=== PATIENT | female | born 2005 | race Caucasian/White ===

== ENCOUNTER 2023-08-15 17:35 | Emergency (ER) | payer SELFPAY ==
[2023-08-15] MEDS ORDERED: ONDANSETRON 4 MG/2 ML VIAL ONE (18:11)
[2023-08-15] MEDS ORDERED: NA CHLORIDE 0.9% 1,000 ML ONE (18:11)
[2023-08-15] MEDS ORDERED: FAMOTIDINE 20 MG/2 ML VIAL IV ONE (18:11)
[2023-08-15 18:25] LABS: Calcium Oxalate Crystals- Ur Few /HPF (None Seen); Specific Gravity > 1.030 (1.005-1.030); Urine Bacteria None Seen /HPF (<20); Urine Bilirubin NEGATIVE (Negative); Urine Blood Negative (Negative); Urine Clarity Extremely Turbid (Clear); Urine Color Yellow (Yellow); Urine Culture Reflex Order NOT NEEDED; Urine Glucose NEGATIVE (Negative); Urine Ketones NEGATIVE (Negative); Urine Microscopic Reflex YN ORDER UMIC; Urine Mucus 4+ /HPF (None Seen); Urine Nitrite NEGATIVE (Negative); Urine Protein TRACE (Negative); Urine RBC <5 /HPF (None Seen); Urine Urobilinogen Normal (Normal); Urine WBC None Seen /HPF (<5); Urine Yeast (Budding) Trace /HPF (None Seen); Urine pH 5.5 (5.0-7.0)
[2023-08-15 18:28] LABS: Absolute Eosinophils 0.1 K/uL (0-0.5); Absolute Lymphocytes (CBC) 2.5 K/uL (0.7-4.9); Absolute Monocytes 0.7 K/uL (0.1-1.3); Absolute Neutrophil 6.1 K/uL (1.8-8.0); Basophils % 0.5 % (0-1.3); Eosinophils % 1.2 % (0-4.4); Hematocrit 37.5 % (36.0-45.0); Hemoglobin 12.3 g/dL (12.0-15.0); Lymphocytes % 26.6 % (15.3-44.8); MCH 28.7 pg (27.0-35.0); MCHC 32.9 g/dL (32.0-36.0); MCV 87.2 fL (80-100); MPV 9.2 fL (7.6-11.3); Monocytes % 7.3 % (3.3-12.3); Neutrophils % 64.4 % (41.7-73.7); Platelets 232 thou/uL (152-406); Red Cell Distribution Width 13.8 % (12.1-15.2)
[2023-08-15 18:50] LABS: ALT/SGPT 17 U/L (13-56); Albumin 3.9 g/dL (3.4-5.0); Albumin/Globulin Ratio 1.1 (1.1-1.8); Alkaline Phosphatase 53 U/L (45-117); Anion Gap 7.2 mEq/L (5.0-15.0); BUN Blood Urea Nitrogen 5 mg/dL (7-18); Bicarbonate 26 mEq/L (21-32); Bilirubin Total 0.5 mg/dL (0.2-1.0); Globulin 3.4 g/dL (2.3-3.5); Glomerular Filtration Rate 113 ml/min (=/>90); Glucose Level 96 mg/dL (74-106); Lipase 17 U/L (13-75); Potassium 3.2 mEq/L (3.5-5.1); Protein, Total 7.3 g/dL (6.4-8.2); Sodium Level 138 mEq/L (136-145)
[2023-08-15 18:52] LABS: AST/SGOT < 10 U/L (15-37)
[2023-08-15 19:04] LABS: HCG, Quantitative 22469 mIU/mL (1-3)
--- NOTE | 2023-08-15 19:33 | EDPHYS ---
Physician Documentation [facility] Name: Kimberly Jacob Age: 18 yrs Sex: Female : 2005 Arrival Date: 08/15/2023 Time: 17:35 Bed 6 Private MD: ED Physician Fitz Chavira HPI: 08/14 18:10 This 18 yrs old Female presents to ER via Ambulatory with complaints of Abdominal Pain, cp Back Pain. 18:10 The patient presents with abdominal pain that is diffuse. cp 18:10 Onset: The symptoms/episode began/occurred gradually. The symptoms do not radiate. cp Associated signs and symptoms: Pertinent positives: nausea and vomiting, Pertinent negatives: vaginal bleeding. Severity of pain: in the emergency department the pain is unchanged despite home interventions. 18:10 The patient has been recently seen at the [facility] Emergency cp Department, this week, for similar complaints an ultrasound was performed, showing IUP. patient instructed to return to ED for repeat hcg level. 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 - Infectious Disease History:: Denies. - Social history:: Smoking status: Patient denies any tobacco usage or history of. ROS: 18:15 Abdomen/GI: Positive for abdominal pain, nausea, vomiting, Negative for diarrhea, cp constipation, 18:15 Eyes: Negative for injury, pain, redness, and discharge, cp 18:15 Constitutional: Negative for body aches, chills, fever, 18:15 : Negative for urinary symptoms, vaginal bleeding, 18:15 Neuro: Negative for altered mental status, dizziness, headache, weakness, 18:15 All other systems are negative, Exam: 18:20 Constitutional: The patient appears in no acute distress, alert, awake, comfortable, cp non-toxic, well developed, well nourished, 18:20 Head/Face: Normocephalic, atraumatic. cp 18:20 Eyes: Periorbital structures: appear normal, Conjunctiva: normal, no exudate, no injection, Sclera: no appreciated abnormality, Lids and lashes: appear normal, bilaterally, 18:20 ENT: External ear(s): are unremarkable, Nose: is normal, Mouth: Lips: moist, Oral mucosa: pink and intact, moist, Posterior pharynx: is normal, airway is patent, no erythema, no exudate, 18:20 Chest/axilla: Inspection: normal, 18:20 Cardiovascular: Rate: normal, Rhythm: regular, 18:20 Respiratory: the patient does not display signs of respiratory distress, Respirations: normal, no use of accessory muscles, no retractions, labored breathing, is not present, Breath sounds: are clear throughout, no decreased breath sounds, no stridor, no wheezing, 18:20 Abdomen/GI: Inspection: abdomen appears normal, Bowel sounds: active, all quadrants, Palpation: soft, in all quadrants, mild abdominal tenderness, in the right upper quadrant and left upper quadrant, rebound tenderness, is not appreciated, involuntary guarding, is not appreciated, 18:20 Back: CVA tenderness, is absent, Vital Signs: 17:39 BP 113 / 65; Pulse 84; Resp 16; Temp 98; Pulse Ox 98% ; ko1 19:16 BP 102 / 59; Pulse 60; Resp 18; Pulse Ox 100% ; jj7 19:51 BP 100 / 62; Pulse 60; Resp 16 S; Pulse Ox 100% on R/A; jw7 MDM: 17:46 Patient medically screened. [facility] 19:32 Data reviewed: vital signs, nurses notes, lab test result(s), and as a result, I will cp discharge patient. 19:32 Differential diagnosis: appendicitis, cholecystitis, Cholelithiasis, gastritis, cp non-specific abd pain, pancreatitis, Peptic Ulcer Disease, Perf. Duodenal Ulcer, Perf. Gastric Ulcer, Pyelonephritis, Ureterolithiasis, urinary tract infection. Response to treatment: the patient's symptoms have markedly improved after treatment, and as a result, I will discharge patient. Special discussion: Based on the patient's Hx, exam, and Dx evaluation, there is no indication for emergent surgery or inpatient Tx. It is understood by the patient/guardian that if the Sx's persist or worsen they need to return immediately for re-evaluation. 08/14 18:03 Order name: CBC with Diff; Complete Time: 19:12 cp 08/14 18:03 Order name: CMP; Complete Time: 19:12 cp 08/14 19:12 Interpretation: Normal except: K 3.2; CL 108; BUN 5; AST < 10. cp 08/14 18:03 Order name: Lipase; Complete Time: 19:12 cp 08/14 18:03 Order name: Urinalysis w/ reflexes; Complete Time: 19:12 cp 08/14 19:12 Interpretation: Normal except: [facility] Extremely Turbid; Urine SG > 1.030; UPROT TRACE; cp MUCUS 4+; BYST Trace. 08/14 18:03 Order name: Quantitative Hcg; Complete Time: 19:12 cp 08/14 19:13 Interpretation: Abnormal: HCGQ [id number]. cp 08/14 18:03 Order name: IV Saline Lock; Complete Time: 18:23 cp 08/14 18:03 Order name: Labs collected and sent; Complete Time: 18:23 cp 08/14 19:13 Order name: PO challenge; Complete Time: 19:16 cp Administered Medications: 18:23 Drug: NS 0.9% IV 1000 ml IV at 1 bolus Per protocol; 1000 mL bolus Route: IV; Rate: 1 me1 bolus; Site: right antecubital; 19:35 Follow up: Response: No adverse reaction; IV Status: Completed infusion; IV Intake: jw7 1000ml 18:23 Drug: Famotidine IVP 20 mg IVP once; dilute with 10 mL 0.9% NaCl; give over 2 minutes me1 Route: IVP; Site: right antecubital; 19:36 Follow up: Response: No adverse reaction; Marked relief of symptoms jw7 18:23 Drug: Ondansetron IVP 4 mg IVP once; over 2 minutes Route: IVP; Site: right antecubital;me1 19:35 Follow up: Response: No adverse reaction; Marked relief of symptoms jw7 19:51 Drug: Potassium PO Effervescent Tablet 50 mEq PO once; dissolve in 4 ounces of water or jw7 juice Route: PO; 19:51 Follow up: Response: No adverse reaction; Medication administered at discharge. jw7 Disposition Summary: 08/15/23 19:33 Discharge Ordered Notes: Location: Home cp Problem: new cp Symptoms: have improved cp Condition: Stable cp Diagnosis - Other specified related conditions, first trimester cp - Nausea with vomiting, unspecified cp - Abdominal pain, unspecified cp Followup: cp - With: Private Physician - When: 1 week - Reason: Recheck today's complaints Discharge Instructions: - Discharge Summary Sheet cp - Abdominal Pain During cp - Nausea and Vomiting, Adult cp - First Trimester of cp Forms: - Medication Reconciliation Form cp - Antibiotic Education cp - Prescription Opioid Use cp - Patient Portal Instructions cp - Leadership Thank You Letter cp Prescriptions: - Diclegis 10-10 mg Oral tablet, delayed release (enteric coated) - take 1 tablet ORAL route 3 times per day take 30 minutes prior to eating; 30 cp tablet; Refills: 0, Product Selection Permitted Addendum: 08/17/2023 07:47 Co-signature as Attending Physician, Fitz Chavira MD I agree with the assessment and c ramos plan of care. Signatures: Dispatcher [employer] Fitz Garsia MD MD cha Page, Corey, PA PA cp Fatoumata Jackson, RN RN jw7 Sarah Emerson RN RN ko1 Ilene Bryan RN RN me1 Corrections: (The following items were deleted from the chart) 08/15 19:11 08/14 18:10 The patient presents with abdominal pain in the lower abdomen, cp cp
--- NOTE | 2023-08-15 19:33 | ER ---
Nurse's Notes [facility] Name: Kimberly Jacob Age: 18 yrs Sex: Female : 2005 Arrival Date: 08/15/2023 Time: 17:35 Bed 6 Private MD: Diagnosis: Other specified related conditions, first trimester;Nausea with vomiting, unspecified;Abdominal pain, unspecified Presentation: 08/14 17:39 Chief complaint: Patient states: was here Saturday for same thing but it has returned. Is ko1 , couldn't find heartbeat on Saturday and was told to come back and get hormone levels drawn for possible misscarriage. Coronavirus screen: At this time, the client does not indicate any symptoms associated with coronavirus-19. Ebola Screen: No symptoms or risks identified at this time. Initial Sepsis Screen: Does the patient meet any 2 criteria? No. Patient's initial sepsis screen is negative. Does the patient have a suspected source of infection? No. Patient's initial sepsis screen is negative. Risk Assessment: Do you want to hurt yourself or someone else? Patient reports no desire to harm self or others. Onset of symptoms is unknown. 17:39 Method Of Arrival: Ambulatory ko1 17:39 Acuity: DANG 3 ko1 Triage Assessment: 17:43 General: Appears in no apparent distress. Behavior is calm, cooperative, appropriate ko1 for age. Pain: Complains of pain in back and abdomen. GI: Reports lower abdominal pain, upper abdominal pain. 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 - Infectious Disease History:: Denies. - Social history:: Smoking status: Patient denies any tobacco usage or history of. Screenin:26 [facility] ED Fall Risk Assessment (Adult) History of falling in the last 3 months, me1 including since admission No falls in past 3 months (0 pts) Confusion or Disorientation No (0 pts) Intoxicated or Sedated No (0 pts) Impaired Gait No (0 pts) Mobility Assist Device Used No (0 pt) Altered Elimination No (0 pt) Score/Fall Risk Level 0 - 2 = Low Risk Maintained a safe environment, Provided non-skid footwear, Hourly rounding (assess needs \T\ fall precautionary measures) done. Abuse screen: Denies threats or abuse. Nutritional screening: No deficits noted. Tuberculosis screening: No symptoms or risk factors identified. Assessment: 18:26 General: Appears comfortable, well groomed, well developed, well nourished, Behavior is me1 calm, cooperative, appropriate for age, Reports was here Saturday for same thing, abdominal pain and back pain, but it has returned. Is , couldn't find heartbeat on Saturday and was told to come back and get hormone levels drawn for possible miscarriage. Pain: Complains of pain in abdomen Pain radiates to back Pain currently is 4 out of 10 on a pain scale. Quality of pain is described as crampy, Pain began 1 day ago. Is intermittent. Neuro: Level of Consciousness is awake, alert, obeys commands, Oriented to person, place, time, situation, Appropriate for age. Respiratory: Airway is patent Respiratory effort is even, unlabored, Respiratory pattern is regular, symmetrical. GI: Abdomen is round non-distended, Bowel sounds present X 4 quads. Abd is soft and non tender X 4 quads. : Denies burning with urination, urinary frequency, vaginal bleeding. EENT: No signs and/or symptoms were reported regarding the EENT system. Derm: Skin is intact, is healthy with good turgor, Skin is pink, warm \T\ dry. Musculoskeletal: No signs and/or symptoms reported regarding the musculoskeletal system. 19:16 Reassessment: ASSUMED CARE OF PT. PT SITTING ON BED. NO DISTRESS NOTED. PT GIVEN JUICE jj7 FOR PO CHALLENGE. PT TOLERATING WELL. VS STABLE. FAMILY AT BEDSIDE. CALL HOGUE IN REACH. 19:51 Reassessment: Patient appears in no apparent distress at this time. No changes from jw7 previously documented assessment. Patient and/or family updated on plan of care and expected duration. Pain level reassessed. Patient is alert, oriented x 3, equal unlabored respirations, skin warm/dry/pink. Vital Signs: 17:39 BP 113 / 65; Pulse 84; Resp 16; Temp 98; Pulse Ox 98% ; ko1 19:16 BP 102 / 59; Pulse 60; Resp 18; Pulse Ox 100% ; jj7 19:51 BP 100 / 62; Pulse 60; Resp 16 S; Pulse Ox 100% on R/A; jw7 ED Course: 17:36 Patient arrived in ED. ts1 17:38 Fitz Panchal PA is PHCP. cp 17:38 Fitz Chavira MD is Attending Physician. cp 17:42 Triage completed. ko1 17:43 Arm band placed on right wrist. Patient placed in an exam room, on a stretcher, on ko1 pulse oximetry, Patient notified of wait time. 18:06 Ilene Bryan, RN is Primary Nurse. me1 18:23 CBC with Diff Sent. me1 18:23 CMP Sent. me1 18:23 Lipase Sent. me1 18:23 Urinalysis w/ reflexes Sent. me1 18:23 Quantitative Hcg Sent. me1 18:23 Inserted saline lock: 22 gauge in right antecubital area, using aseptic technique. me1 18:26 Patient has correct armband on for positive identification. Bed in low position. Call me1 light in reach. Side rails up X 1. Provided Education on: POC. Verbalized understanding. . Client placed on continuous cardiac and pulse oximetry monitoring. NIBP monitoring applied. Pulse ox on. NIBP on. 18:26 No provider procedures requiring assistance completed. me1 19:52 IV discontinued, intact, bleeding controlled, No redness/swelling at site. Pressure jw7 dressing applied. Administered Medications: 18:23 Drug: NS 0.9% IV 1000 ml IV at 1 bolus Per protocol; 1000 mL bolus Route: IV; Rate: 1 me1 bolus; Site: right antecubital; 19:35 Follow up: Response: No adverse reaction; IV Status: Completed infusion; IV Intake: jw7 1000ml 18:23 Drug: Famotidine IVP 20 mg IVP once; dilute with 10 mL 0.9% NaCl; give over 2 minutes me1 Route: IVP; Site: right antecubital; 19:36 Follow up: Response: No adverse reaction; Marked relief of symptoms jw7 18:23 Drug: Ondansetron IVP 4 mg IVP once; over 2 minutes Route: IVP; Site: right antecubital;me1 19:35 Follow up: Response: No adverse reaction; Marked relief of symptoms jw7 19:51 Drug: Potassium PO Effervescent Tablet 50 mEq PO once; dissolve in 4 ounces of water or jw7 juice Route: PO; 19:51 Follow up: Response: No adverse reaction; Medication administered at discharge. jw7 Medication: 18:26 VIS not applicable for this client. me1 Intake: 19:35 IV: 1000ml; Total: 1000ml. jw7 Outcome: 19:33 Discharge ordered by . cp 19:52 Discharged to home ambulatory, jw 19:52 Condition: stable 19:52 Discharge instructions given to patient, Instructed on discharge instructions, follow up and referral plans. medication usage, Demonstrated understanding of instructions, follow-up care, medications, Prescriptions given X 1, 19:52 Patient left the ED. jw7 Signatures: Fitz Panchal PA PA cp Waits, Jodi, RN RN jw7 Sarah Emerson RN RN ko1 Manda Ham RN RN jj7 Simpson, Tanya, PAS PAS ts1 Ilene Bryan RN RN me1 Corrections: (The following items were deleted from the chart) 17:43 17:39 Chief complaint: Patient states: was here Saturday for same thing but it has ko1 returned ko1 18:26 17:39 Chief complaint: Patient states: was here [place] for same thing but it has me1 returned. Is , couldn't find heartbeat on Saturday and was told to come back and get hormone levels drawn for possible misscarriage. ko1
[2023-08-15] MEDS ORDERED: POTASSIUM 25 MEQ EFFERV TAB ONE (19:41)
[2023-08-15 20:08] VITALS: BP 100/62; TEMP 98; O2SAT 100
== END 2023-08-15 19:52 | disposition home or self-care (01) ==
LOC: ER 17:35
DX: O26.891 Other specified pregnancy related conditions, first trimester (principal); Z3A.00 Weeks of gestation of pregnancy not specified
CPT/HCPCS: 36415; 80053; 81001; 83690; 84702; 85025; 96361; 96374; 96375; 99284; J2405; J7030

== ENCOUNTER 2024-01-21 18:06 | Emergency (ER) | payer OTHER, SELFPAY ==
--- NOTE | 2024-01-21 20:14 | RAD REPORT ---
EXAM:OB Limited . CLINICAL HISTORY: with abdominal pain. back pain TECHNIQUE: Limited OB ultrasound performed. FINDINGS: Single live intrauterine fetus is identified. Ultrasound estimated gestational age 28 week 1 day. Fet al cardiac activity measured at 137 BPM. Amniotic fluid is normal measuring 20.4 cm MIKE. Largest pocket 7.9 cm. Cervix measures 4 cm and appea rs closed. Placenta is anterior, grade 1. IMPRESSION: No acute findings identified.
[2024-01-21] MEDS ORDERED: ACETAMINOPHEN 500 MG TAB ONE (21:41)
[2024-01-21] MEDS ORDERED: PANTOPRAZOLE 40MG TABLET PO ONE (21:41)
[2024-01-21] MEDS ORDERED: FAMOTIDINE 20 MG TAB ONE (21:41)
[2024-01-21 21:48] LABS: Absolute Lymphocytes (CBC) 1.4 K/uL (0.7-4.9); Absolute Monocytes 0.9 K/uL (0.1-1.3); Absolute Neutrophil 6.5 K/uL (1.8-8.0); Basophils % 0.4 % (0-1.3); Eosinophils % 0.3 % (0-4.4); Hemoglobin 11.1 g/dL (12.0-15.0); Lymphocytes % 16.1 % (15.3-44.8); MCH 29.7 pg (27.0-35.0); MCHC 33.7 g/dL (32.0-36.0); MPV 9.3 fL (7.6-11.3); Neutrophils % 73.2 % (41.7-73.7); Platelets 164 thou/uL (152-406); RBC Red Blood Cell Count 3.75 M/uL (3.86-4.86); Red Cell Distribution Width 13.6 % (12.1-15.2)
[2024-01-21 21:57] LABS: SARS-CoV-2 Antigen CONTROL BLUE LINE VIS/BG OK; SARS-CoV-2 Antigen Rapid Res Negative (Negative)
[2024-01-21 22:00] LABS: Specific Gravity 1.018 (1.005-1.030); Urine Bacteria <20 /HPF (<20); Urine Bilirubin NEGATIVE (Negative); Urine Blood Negative (Negative); Urine Clarity Extremely Turbid (Clear); Urine Color Yellow (Yellow); Urine Culture Reflex Order NOT NEEDED; Urine Glucose NEGATIVE (Negative); Urine Ketones 4+ (Negative); Urine Micro Reflex YN NO BILL MICROSCOPIC; Urine Mucus 2+ /HPF (None Seen); Urine Nitrite NEGATIVE (Negative); Urine Protein TRACE (Negative); Urine Urobilinogen Normal (Normal); Urine WBC <5 /HPF (<5); Urine Yeast (Budding) Trace /HPF (None Seen)
[2024-01-21 22:09] LABS: Albumin 3.1 g/dL (3.4-5.0); Albumin/Globulin Ratio 0.8 (1.1-1.8); Anion Gap 8.1 mEq/L (5.0-15.0); Bilirubin Total 0.4 mg/dL (0.2-1.0); Potassium 3.1 mEq/L (3.5-5.1); Protein, Total 7.1 g/dL (6.4-8.2)
--- NOTE | 2024-01-21 22:52 | ER ---
Nurse's Notes [facility] Name: Kimberly Jacob Age: 18 yrs Sex: Female : 2005 Arrival Date: 01/21/2024 Time: 18:06 Bed 7 Private MD: Diagnosis: Influeza A, at 30 weeks EGA, Acute Viral Illness Presentation: 01/20 18:52 Chief complaint: Patient states: RIGHT FLANK PAIN ONSET LAST NIGHT. PT REPORTS THAT THE cm10 PAIN IS CONSTANT AND DESCRIBES THE PAIN SHARP, SHOOTING, ACHING, AND PRSSURE. Coronavirus screen: Client denies travel out of the [place] in the last 14 days. Ebola Screen: Patient denies travel to an Ebola-affected area in the 21 days before illness onset. No symptoms or risks identified at this time. Initial Sepsis Screen: Does the patient meet any 2 criteria? HR > 90 bpm. Does the patient have a suspected source of infection? No. Patient's initial sepsis screen is negative. Risk Assessment: Do you want to hurt yourself or someone else? Patient reports no desire to harm self or others. Onset of symptoms was January 20, 2024. 18:52 Method Of Arrival: Ambulatory cm10 18:52 Acuity: DANG 3 cm10 Triage Assessment: 18:54 Pain: Complains of pain in right flank. Pain: Pain does not radiate. Pain currently is cm10 7 out of 10 on a pain scale. Quality of pain is described as aching, pressure, sharp, shooting, Pain began 1 day ago. Is continuous. Neuro: No deficits noted. Respiratory: No deficits noted. Airway is patent Respiratory effort is even, unlabored, Respiratory pattern is regular, symmetrical. Derm: No deficits noted. Skin is intact, Skin is pink, warm \T\ dry. 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 - Infectious Disease History:: Denies. - Social history:: Smoking status: Patient denies any tobacco usage or history of. - Family history:: not pertinent. Screenin:51 [facility] ED Fall Risk Assessment (Adult) History of falling in the last 3 months, aa10 including since admission No falls in past 3 months (0 pts) Confusion or Disorientation No (0 pts) Intoxicated or Sedated No (0 pts) Impaired Gait No (0 pts) Mobility Assist Device Used No (0 pt) Altered Elimination No (0 pt) Score/Fall Risk Level 0 - 2 = Low Risk Oriented to surroundings, Maintained a safe environment, Educated pt \T\ family on fall prevention, incl call for assistance when getting out of bed, Assessed \T\ reinforced patient's understanding of fall precautions. Abuse screen: Denies threats or abuse. Nutritional screening: No deficits noted. Tuberculosis screening: No symptoms or risk factors identified. Never had TB. Assessment: 21:51 General: Appears in no apparent distress. comfortable, well groomed, Behavior is aa10 Reports feeling ill for 1-2 days, Denies nausea and vomiting. Pain: Complains of pain in back Pain does not radiate. Pain currently is 8 out of 10 on a pain scale. Quality of pain is described as aching, throbbing, Pain began 1 day ago. Alleviated by massage, Aggravated by increased activity, Noted to be Current management is with Tylenol. Neuro: No deficits noted. Level of Consciousness is Oriented to person, place, time, situation, Appropriate for age. Cardiovascular: No deficits noted. Denies chest pain, palpitations, shortness of breath, Capillary refill < 3 seconds. Respiratory: No deficits noted. Airway is patent. GI: No deficits noted. No signs and/or symptoms were reported involving the gastrointestinal system. : No deficits noted. No signs and/or symptoms were reported regarding the genitourinary system. EENT: No deficits noted. No signs and/or symptoms were reported regarding the EENT system. Derm: No deficits noted. No signs and/or symptoms reported regarding the dermatologic system. Skin is intact, is healthy with good turgor. Musculoskeletal: No deficits noted. No signs and/or symptoms reported regarding the musculoskeletal system. Vital Signs: 18:52 BP 141 / 86; Pulse 94; Resp 16; Temp 98.1(TE); Pulse Ox 100% on R/A; Weight 91.17 kg; cm10 Height 5 ft. 4 in. ; Pain 8/10; 21:50 BP 110 / 66; Pulse 97; Resp 18 S; Pulse Ox 100% on R/A; aa10 22:20 BP 152 / 76; Pulse 91; Resp 18 S; Pulse Ox 99% on R/A; ha1 22:58 BP 110 / 66; Pulse 85; Resp 18 S; Pulse Ox 100% on R/A; aa10 18:52 Body Mass Index 34.50 (91.17 kg, 162.56 cm) cm10 18:52 Pain Scale: Adult cm10 Vitals: 21:51 Cardiac Rhythm Assessment Regular Sinus rhythm. aa10 Leighton Coma Score: 01/21 05:22 Eye Response: spontaneous(4). Motor Response: obeys commands(6). Verbal Response: sp4 oriented(5). Total: 15. ED Course: 01/20 18:11 Patient arrived in ED. ra3 18:25 Dayron Muir MD is Attending Physician. sp3 18:54 Triage completed. cm10 18:55 Arm band placed on right wrist. Patient placed in waiting room. cm10 20:04 US OB Limited In Process Unspecified. EDMS 20:18 Attending Physician role handed off by Dayron Muir MD sp4 20:18 James Peña MD is Attending Physician. sp4 21:26 SARS RAPID Sent. aa10 21:26 Strep Sent. aa10 21:26 Flu Sent. aa10 21:30 Itzel Packer, RN is Primary Nurse. aa10 21:42 CBC with Diff Sent. aa10 21:42 CMP Sent. aa10 21:42 Lipase Sent. aa10 21:43 SARS RAPID Sent. aa10 21:43 Strep Sent. aa10 21:43 Flu Sent. aa10 21:43 UAM Sent. aa10 21:51 Patient has correct armband on for positive identification. Fall risk band placed. Bed aa10 in low position. Call light in reach. Side rails up X2. Provided Education on: educated on fall prevention and admission need. 21:59 Inserted saline lock: 20 gauge in left antecubital area, using aseptic technique. Blood aa10 collected. Flushed with 10 mL NS. 21:59 Accessed Missed attempt(s): aa10 22:54 IV discontinued, intact, bleeding controlled, No redness/swelling at site. Pressure ha1 dressing applied. 23:00 No provider procedures requiring assistance completed. aa10 Administered Medications: 21:49 Drug: Pantoprazole PO 40 mg PO once Route: PO; aa10 22:59 Follow up: Response: No adverse reaction; Marked relief of symptoms aa10 21:49 Drug: Famotidine PO 20 mg PO once Route: PO; aa10 22:59 Follow up: Response: No adverse reaction; Marked relief of symptoms aa10 21:49 Drug: Acetaminophen PO 1000 mg PO once Route: PO; aa10 22:59 Follow up: Response: No adverse reaction; Pain is decreased aa10 Medication: 21:51 VIS not applicable for this client. aa10 Outcome: 22:52 Discharge ordered by . sp4 22:56 Discharged to home ambulatory, aa10 22:56 Condition: good 22:56 Discharge instructions given to patient, Instructed on discharge instructions, follow up and referral plans. Demonstrated understanding of instructions, follow-up care, medications, Prescriptions given X 2, 23:00 Patient left the ED. aa10 Signatures: Dispatcher [employer] EDMS Dayron Muir MD MD sp3 Regina Gambino, RN RN ha1 James Peña MD MD sp4 Arielle Lam RN RN 10 Keila Aldana 3 Itzel Packer RN RN aa10
--- NOTE | 2024-01-21 22:52 | EDPHYS ---
Physician Documentation [facility] Name: Kimberly Jacob Age: 18 yrs Sex: Female : 2005 Arrival Date: 01/21/2024 Time: 18:06 Bed 7 Private MD: ED Physician James Peña HPI: 01/20 22:45 This 18 yrs old Female presents to ER via Ambulatory with complaints of 30wks sp4 preg back pain and sick. 22:45 Patient is a very pleasant 18-year-old female who is G1, P0 EGA 30 weeks 2 days by sp4 estimated delivery date at 03/29/2024. Patient presents with bilateral back pain and feeling unwell . 01/21 05:22 Patient reports associated body aches. 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 - Infectious Disease History:: Denies. - Social history:: Smoking status: Patient denies any tobacco usage or history of. - Family history:: not pertinent. ROS: 01/21 05:22 Constitutional: Negative for fever, chills, and weight loss, positive back pain, sp4 positive body aches, positive third trimester . All other systems are negative, Exam: 05:22 Constitutional: This is a well developed, well nourished patient who is awake, alert, sp4 and in no acute distress. Head/Face: Normocephalic, atraumatic. Eyes: Pupils equal round and reactive to light, extra-ocular motions intact. Lids and lashes normal. Conjunctiva and sclera are not injected. Cornea within normal limits. Periorbital areas with no swelling, redness, or edema. ENT: Nares patent. No nasal discharge, no septal abnormalities noted. Tympanic membranes are normal and external auditory canals are clear. Oropharynx with no redness, swelling, or masses, exudates, or evidence of obstruction, uvula midline. Mucous membranes moist. Neck: Trachea midline, no thyromegaly or masses palpated, and no cervical lymphadenopathy. Supple, full range of motion without nuchal rigidity, or vertebral point tenderness. Chest/axilla: Normal chest wall appearance and motion. Nontender with no deformity. No lesions are appreciated. Cardiovascular: Regular rate and rhythm with a normal S1 and S2. No gallops, murmurs, or rubs. Normal PMI, no JVD. No pulse deficits. Respiratory: Lungs have equal breath sounds bilaterally, clear to auscultation and percussion. No rales, rhonchi or wheezes noted. No increased work of breathing, no retractions or nasal flaring. Abdomen/GI: Soft, with normal bowel sounds. No distension or tympany. No guarding or rebound. No evidence of tenderness throughout. There is a gravid uterus Back: No spinal tenderness. No costovertebral tenderness. Skin: Warm, dry with normal turgor. Normal color with no rashes, no lesions, and no evidence of cellulitis. MS/ Extremity: Pulses equal, no cyanosis. Neurovascular intact. Full, normal range of motion. Neuro: Awake and alert, GCS 15, oriented to person, place, time, and situation. Cranial nerves II-XII grossly intact. Motor strength 5/5 in all extremities. Sensory grossly intact. Psych: Awake, alert, with orientation to person, place and time. Behavior, mood, and affect are within normal limits Vital Signs: 01/20 18:52 BP 141 / 86; Pulse 94; Resp 16; Temp 98.1(TE); Pulse Ox 100% on R/A; Weight 91.17 kg; cm10 Height 5 ft. 4 in. ; Pain 8/10; 21:50 BP 110 / 66; Pulse 97; Resp 18 S; Pulse Ox 100% on R/A; aa10 22:20 BP 152 / 76; Pulse 91; Resp 18 S; Pulse Ox 99% on R/A; ha1 22:58 BP 110 / 66; Pulse 85; Resp 18 S; Pulse Ox 100% on R/A; aa10 18:52 Body Mass Index 34.50 (91.17 kg, 162.56 cm) cm10 18:52 Pain Scale: Adult cm10 Leighton Coma Score: 01/21 05:22 Eye Response: spontaneous(4). Motor Response: obeys commands(6). Verbal Response: sp4 oriented(5). Total: 15. MDM: 01/20 18:55 Medical Screening Exam initiated sp3 22:46 ED course: EXAM:OB Limited . CLINICAL HISTORY: with abdominal pain. back pain sp4 TECHNIQUE: Limited OB ultrasound performed. FINDINGS: Single live intrauterine fetus is identified. Ultrasound estimated gestational age 28 week 1 day. cardiac activity measured at 137 BPM. Amniotic fluid is normal measuring 20.4 cm MIKE. Largest pocket 7.9 cm. Cervix measures 4 cm and appears closed. Placenta is anterior, grade 1. IMPRESSION: No acute findings identified. . ED course: Prior Sonogram - EXAM DESCRIPTION: US - Transvaginal OB - 08/19/2023 1:30 pm CLINICAL HISTORY: VAGINAL BLEEDING COMPARISON: Transvaginal OB dated 08/12/2023 FINDINGS: Single live IUP identified with positive heart tones. The crown-rump length measures 0.6 cm which is consistent with 6 week 2 day and JUNAID of 04/11/2024 . The left ovary is volume of 4.4 cc. Vascular flow is present. The right ovary was not visualized. heart rate measured at 111 beats/minute . No free fluid. IMPRESSION: Single IUP with positive heart tones measuring 6 week 2 day with JUNAID of 04/11/2024. Left ovary has vascular flow. Right ovary was not visualized. Signed By: Manolo Conteh MD Signed AT: 08/19/23 1346 . 01/21 05:22 Differential diagnosis: endometriosis, nonspecific abdominal pain, vaginosis. Data sp4 reviewed: vital signs, nurses notes, lab test result(s), Flu: positive radiologic studies, ultrasound. ED course: Patient tested positive for influenza A.. 01/20 19:09 Order name: UAM; Complete Time: 22:37 sp3 01/20 19:09 Order name: Flu; Complete Time: 22:37 sp3 01/20 19:09 Order name: Strep; Complete Time: 22:37 sp3 01/20 19:09 Order name: SARS RAPID; Complete Time: 22:37 sp3 01/20 21:06 Order name: CBC with Diff sp4 01/20 21:06 Order name: CMP sp4 01/20 21:06 Order name: Lipase sp4 01/20 21:08 Order name: CBC with Automated Diff; Complete Time: 22:37 EDMS 01/20 21:08 Order name: Comprehensive Metabolic Panel; Complete Time: 22:37 EDMS 01/20 21:08 Order name: Lipase; Complete Time: 22:37 EDMS 01/20 22:00 Order name: Throat Culture EDMS 01/20 19:09 Order name: US OB Limited; Complete Time: 20:48 sp3 01/20 21:06 Order name: IV Saline Lock; Complete Time: 21:42 sp4 01/20 21:06 Order name: Labs collected and sent; Complete Time: 21:42 sp4 Administered Medications: 01/20 21:49 Drug: Pantoprazole PO 40 mg PO once Route: PO; aa10 22:59 Follow up: Response: No adverse reaction; Marked relief of symptoms aa10 21:49 Drug: Famotidine PO 20 mg PO once Route: PO; aa10 22:59 Follow up: Response: No adverse reaction; Marked relief of symptoms aa10 21:49 Drug: Acetaminophen PO 1000 mg PO once Route: PO; aa10 22:59 Follow up: Response: No adverse reaction; Pain is decreased aa10 Disposition Summary: 01/21/24 22:52 Discharge Ordered Notes: Location: Home sp4 Problem: new sp4 Symptoms: have improved sp4 Condition: Stable sp4 Diagnosis - Influeza A, at 30 weeks EGA, Acute Viral Illness sp4 Followup: sp4 - With: Private Physician - When: 7 - 10 days - Reason: Recheck today's complaints Discharge Instructions: - Discharge Summary Sheet sp4 - Influenza, Adult, [id number] sp4 Forms: - Patient Portal Instructions sp4 Prescriptions: - ondansetron 8 mg Oral Tablet,disintegrating - take 1 tablet ORAL route every 8 hours PRN nausea; 30 tablet; Refills: 0, sp4 Product Selection Permitted - Cephalexin 500 mg Oral Capsule - take 1 capsule ORAL route every 12 hours for 10 days; 20 capsule; Refills: 0, sp4 Product Selection Permitted Signatures: Dispatcher [employer] Dayron Thorne MD MD sp3 James Peña MD MD sp4 Arielle Lam RN RN cm10 Itzel Packer RN RN aa10
[2024-01-21 23:15] VITALS: TEMP 98.1
[2024-01-21 23:27] VITALS: BP 110/66; O2SAT 100
== END 2024-01-21 23:00 | disposition home or self-care (01) ==
LOC: ER 18:06
DX: O99.513 Diseases of the respiratory system complicating pregnancy, third trimester (principal); J10.1 Influenza due to other identified influenza virus with other respiratory manifestations; Z3A.30 30 weeks gestation of pregnancy; Z11.52 Encounter for screening for COVID-19
CPT/HCPCS: 36415; 76815; 80053; 81001; 83690; 85025; 87070; 87081; 87804; 87811; 99284